=== PATIENT | male | born 1985 | race African-American/Black ===

== ENCOUNTER 2019-02-03 05:15 | Emergency (ER) | payer OTHER, SELFPAY ==
[2019-02-03] MEDS ORDERED: Albuterol Sulfate 2.5 mg/3 ml Neb ONE (05:27)
[2019-02-03] MEDS ORDERED: Albuterol Sulfate 2.5 mg/0.5 ml Neb ONE (05:27)
[2019-02-03] MEDS ORDERED: predniSONE 20 MG TAB ONE (05:30)
== END 2019-02-03 06:35 | disposition home or self-care (01) ==
LOC: ERS 05:15
DX: J45.909 Unspecified asthma, uncomplicated (principal); Z87.891 Personal history of nicotine dependence; Z79.51 Long term (current) use of inhaled steroids
CPT/HCPCS: 94640; 94644; J7512; J7611; J7620